=== PATIENT | female | born 1950 | race Two or more races ===

== ENCOUNTER 2024-02-18 23:50 | Emergency (ER) | payer MEDICARE, OTHER ==
[~2024-02-18] VITALS: Ht 154.9 cm; Wt 81.3 kg
[2024-02-19 05:01] VITALS: BP 120/53; PULSE 76; RESP 18; TEMP 97.6; O2SAT 98
== END 2024-02-19 05:00 | disposition home or self-care (01) ==
LOC: ER 23:50
DX: S51.812A Laceration without foreign body of left forearm, initial encounter (principal); E11.22 Type 2 diabetes mellitus with diabetic chronic kidney disease; I12.0 Hypertensive chronic kidney disease with stage 5 chronic kidney disease or end stage renal disease; N18.6 End stage renal disease; W18.11XA Fall from or off toilet without subsequent striking against object, initial encounter; Y93.89 Activity, other specified; Y92.002 Bathroom of unspecified non-institutional (private) residence as the place of occurrence of the external cause; Y99.8 Other external cause status
CPT/HCPCS: 70450; 71250; 72125; 73090; 74176